=== PATIENT | female | born 1945 | race Caucasian/White ===

== ENCOUNTER 2017-02-17 19:49 | Observation (INO) ==
[2017-02-17 20:40] LABS: Basophils % 0.2 %; Eosinophils # 0.1 K/mcL (0.0-0.6); Eosinophils % 1.5 %; Hematocrit 42.2 % (35.3-44.9); Hemoglobin 14.3 g/dL (11.5-15.4); Immature Granulocytes % 0.4 % (0-4); Lymphocytes # 1.7 K/mcL (0.6-4.6); Lymphocytes % 36.8 %; Mean Corpuscular HGB Conc 33.9 g/dL (31.6-35.5); Mean Corpuscular Hemoglobin 34.4 pg (28.0-33.3); Mean Corpuscular Volume 101.4 fL (83.0-100.0); Mean Platelet Volume 9.6 fL (9.4-12.4); Monocytes # 0.6 K/mcL (0.0-1.3); Monocytes % 12.1 %; Neutrophils # 2.2 K/mcL (1.6-8.9); Platelet Count 223 K/mcL (140-400); Red Blood Count 4.16 M/mcL (3.82-4.97); Red Cell Distribution Width 12.9 % (11.5-14.5)
[2017-02-17 20:56] LABS: Alanine Aminotransferase 32 Units/L (0-55); Albumin 3.9 g/dL (3.5-5.0); Albumin/Globulin Ratio 1.1 (1.1-2.2); Alkaline Phosphatase 50 Units/L (38-126); Aspartate Amino Transferase 62 Units/L (5-34); BUN/Creatinine Ratio 10 (6-26); Bilirubin,Direct 0.2 mg/dL (0.0-0.5); Bilirubin,Indirect 0.3 mg/dL (0.0-1.2); Bilirubin,Total 0.5 mg/dL (0.2-1.2); Blood Urea Nitrogen 7 mg/dL (7-20); Calcium 9.8 mg/dL (8.6-10.8); Carbon Dioxide 25 mEq/L (19-29); Chloride 101 mEq/L (98-109); Globulin 3.4 g/dL (2.4-3.5); Glucose 124 mg/dL (70-99); Osmolality,Calculated 287 (280-300); Potassium 3.9 mEq/L (3.5-4.5); Sodium 139 mEq/L (136-145); Total Protein 7.3 g/dL (6.0-8.3); eGFR For African Americans > 60 (> 60); eGFR For Non-African Americans > 60 (> 60)
[2017-02-17 20:58] LABS: Ethanol < 10 mg/dL (0-10)
--- NOTE | 2017-02-17 21:07 | Emergency Department Note ---
Disposition Clinical Impression: Hallucinations, Adverse reaction to drug in therapeutic use Altered mental status Qualifiers: Altered mental status type: disorientation Qualified Code(s): R41.0 - Disorientation, unspecified Disposition: Admitted As Inpatient Condition: Fair Referrals: Branden Evans DO [Primary Care Provider] - Forms: ED Satisfaction Letter General Adult HPI - General Chief complaint: ED Altered Mental Status Stated complaint: Hallucinations / Poss Stroke Time Seen by Provider: 02/17/17 20:54 Source: other Nursing Notes Reviewed: Yes Vital Signs Reviewed: Yes - History of Present Illness HPI Narrative: Mrs. Sanchez, a 71yo female, presents with her longtime friend who is power of defense attorney bedside. He is very smooth the patient andher baseline to be alert and conversive. He notes a 24-hour history of mumbling speech, visual hallucinations, and difficulty with ambulation. Hallucinations described as seeing a cat which was not there in recalling conversations that day with her mother who is for 10 years. Patient has stumbled but has not fallen. Patient notes difficulty with an pain with urination. Otherwise, no fever or chills. No chest pains palpitations or dyspnea. PMH: Seizure history on Depakote and divalproex. Difficulty sleeping on trazodone and Seroquel. Anxiety and depression on buspirone and venlafaxine. Chronic pain problems on gabapentin and tramadol. Tramadol is a new medication. Nobody is with her to help her control or monitor her medication intake. History TIA. 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 Pain Scale: 0 - Related Data Previous Rx's Medication Instructions Recorded Amoxicillin 875 mg PO BID #14 tablet 05/27/16 Sulfamethoxazole/Trimeth DS 1 each PO BID #14 tablet 05/27/16 [Bactrim DS] Allergies Allergy/AdvReac Type Severity Reaction Status Date / Time codeine Allergy Vomiting Verified 02/17/17 20:01 All systems ED: reviewed and negative except as stated. Past Medical History - Past Medical History Medical history: Reports: CVA, seizures Surgical history: Reports: other (Tonsillectomy) Psychiatric history: Reports: anxiety, bipolar, depression HIGH PRESSURE CLEANER history: Reports: no HIGH PRESSURE CLEANER history - Social History Smoking Status: Former smoker Smokeless Tobacco Status: No Alcohol use: Reports: none Drug use: Reports: none Physical Exam Vital Signs Reviewed General: Patient is alert, oriented, and in no acute distress. HEENT: No facial asymmetry. Head is normocephalic and atraumatic. PERRLA, EOMI. oral mucosa moist. Trachea midline. Cardiovascular: Heart regular rate and rhythm without clicks, rubs, gallops, or murmurs. No JVD. PMI nondisplaced. Bilateral radial posterior tibial pulses 2 /4 equal. Respiratory: Symmetric chest rise with good respiratory effort. Bilateral breath sounds are clear without wheezing, crackles, or rhonchi. Abdomen: Bowel sounds present normoactive x-4 quadrants. Abdomen is soft, nondistended, and nontender. Musculoskeletal: Muscle strength 5/5 and symmetric bilaterally in upper and lower extremities. Neuro: Cranial nerves II through XII without deficit. Sensation light touch intact. No pronator drift. Psych: Patient's affect is appropriate for situation. - General General appearance: alert, in no apparent distress Course Course Narrative: Patient has no focal motor or sensory deficits. She does not slur her speech but rather stutters and speaks incoherently. Differential includes TIA versus UTI versus medication toxicity/side effects; suspect tramadol. Vital Signs Temperature 97.6 F 02/17/17 19:56 Pulse Rate 110 02/17/17 19:56 Respiratory Rate 20 02/17/17 19:56 Blood Pressure 125/86 02/17/17 19:56 O2 Sat by Pulse Oximetry 94 02/17/17 19:56 Temperature 97.6 F 02/17/17 19:56 Pulse Rate 76 02/17/17 23:39 Respiratory Rate 16 02/17/17 23:39 Blood Pressure 104/66 02/17/17 23:39 O2 Sat by Pulse Oximetry 90 02/17/17 23:39 Oxygen Delivery Oxygen Delivery Room Air Medical Decision Making - Lab Data Result diagrams: 02/17/17 20:20 02/17/17 20:20 Lab Results 02/17/17 02/17/17 02/17/17 Range/Units 20:05 20:20 20:20 WBC 4.6 (4.3-11.1) K/mcL RBC 4.16 (3.82-4.97) M/mcL Hgb 14.3 (11.5-15.4) g/dL Hct 42.2 (35.3-44.9) % MCV 101.4 H (83.0-100.0) fL MCH 34.4 H (28.0-33.3) pg MCHC 33.9 (31.6-35.5) g/dL RDW 12.9 (11.5-14.5) % Plt Count 223 (140-400) K/mcL MPV 9.6 (9.4-12.4) fL Immature Gran % 0.4 (0-4) % Seg Neutrophils % 49.0 % Lymphocytes % 36.8 % Monocytes % 12.1 % Eosinophils % 1.5 % Basophils % 0.2 % Neutrophils # 2.2 (1.6-8.9) K/mcL Lymphocytes # 1.7 (0.6-4.6) K/mcL Monocytes # 0.6 (0.0-1.3) K/mcL Eosinophils # 0.1 (0.0-0.6) K/mcL Basophils # 0.0 (0.0-0.2) K/mcL Sodium 139 (136-145) mEq/L Potassium 3.9 (3.5-4.5) mEq/L Chloride 101 (98-109) mEq/L Carbon Dioxide 25 (19-29) mEq/L BUN 7 (7-20) mg/dL Creatinine 0.72 (0.57-1.11) mg/dL Est GFR ( Amer) > 60 (> 60) Est GFR (Non-Af Amer) > 60 (> 60) BUN/Creatinine Ratio 10 (6-26) Glucose 124 H (70-99) mg/dL POC Glucose 115 H (58-89) Calculated Osmolality 287 (280-300) Calcium 9.8 (8.6-10.8) mg/dL Phosphorus 3.0 (2.3-4.7) mg/dL Magnesium 1.7 (1.6-2.6) mg/dL Total Bilirubin 0.5 (0.2-1.2) mg/dL Direct Bilirubin 0.2 (0.0-0.5) mg/dL Indirect Bilirubin 0.3 (0.0-1.2) mg/dL AST 62 H (5-34) Units/L ALT 32 (0-55) Units/L Alkaline Phosphatase 50 (38-126) Units/L Troponin I (0-0.03) ng/mL Serum Total Protein 7.3 (6.0-8.3) g/dL Albumin 3.9 (3.5-5.0) g/dL Globulin 3.4 (2.4-3.5) g/dL Albumin/Globulin Ratio 1.1 (1.1-2.2) Urine Color (Yellow) Urine Clarity (Clear) Urine pH (5.0-8.0) pH Units Ur Specific [place] (1.010-1.025) Urine Protein (Neg-Trace) mg/dL Urine Glucose (UA) (Normal) mg/dL Urine Ketones (Negative) mg/dL Urine Blood (Negative) Urine Nitrite (Negative) Urine Bilirubin (Negative) Urine Urobilinogen (Normal) mg/dL Ur Leukocyte Esterase (Negative) Urine Microscopic RBC (0-3) per hpf Urine Microscopic WBC (0-3) per hpf Ur Squamous Epith Cells (None-Few) per lpf Urine Bacteria (None-Few) per hpf Hyaline Casts (None-Few) per lpf Ur Culture Indicated? (NO) Urine Opiates Screen (Ikjbuj=878) ng/mL Ur Barbiturates Screen (Vcvjrl=366) ng/mL Valproic Acid (50-100) mcg/mL Ur Phencyclidine Scrn (Cutoff=25) ng/mL Ur Amphetamines Screen (Pqxili=0207) ng/mL U Benzodiazepines Scrn (Ghyygx=111) ng/mL Urine Cocaine Screen (Cutoff= 300) ng/mL U Marijuana (THC) Screen (Cutoff = 50) ng/mL Ethyl Alcohol < 10 (0-10) mg/dL 02/17/17 02/17/17 02/17/17 Range/Units 20:20 20:20 21:22 WBC (4.3-11.1) K/mcL RBC (3.82-4.97) M/mcL Hgb (11.5-15.4) g/dL Hct (35.3-44.9) % MCV (83.0-100.0) fL MCH (28.0-33.3) pg MCHC (31.6-35.5) g/dL RDW (11.5-14.5) % Plt Count (140-400) K/mcL MPV (9.4-12.4) fL Immature Gran % (0-4) % Seg Neutrophils % % Lymphocytes % % Monocytes % % Eosinophils % % Basophils % % Neutrophils # (1.6-8.9) K/mcL Lymphocytes # (0.6-4.6) K/mcL Monocytes # (0.0-1.3) K/mcL Eosinophils # (0.0-0.6) K/mcL Basophils # (0.0-0.2) K/mcL Sodium (136-145) mEq/L Potassium (3.5-4.5) mEq/L Chloride (98-109) mEq/L Carbon Dioxide (19-29) mEq/L BUN (7-20) mg/dL Creatinine (0.57-1.11) mg/dL Est GFR ( Amer) (> 60) Est GFR (Non-Af Amer) (> 60) BUN/Creatinine Ratio (6-26) Glucose (70-99) mg/dL POC Glucose (58-89) Calculated Osmolality (280-300) Calcium (8.6-10.8) mg/dL Phosphorus (2.3-4.7) mg/dL Magnesium (1.6-2.6) mg/dL Total Bilirubin (0.2-1.2) mg/dL Direct Bilirubin (0.0-0.5) mg/dL Indirect Bilirubin (0.0-1.2) mg/dL AST (5-34) Units/L ALT (0-55) Units/L Alkaline Phosphatase (38-126) Units/L Troponin I 0.00 (0-0.03) ng/mL Serum Total Protein (6.0-8.3) g/dL Albumin (3.5-5.0) g/dL Globulin (2.4-3.5) g/dL Albumin/Globulin Ratio (1.1-2.2) Urine Color Yellow (Yellow) Urine Clarity Clear (Clear) Urine pH 7.0 (5.0-8.0) pH Units Ur Specific [place] 1.011 (1.010-1.025) Urine Protein Negative (Neg-Trace) mg/dL Urine Glucose (UA) Normal (Normal) mg/dL Urine Ketones Trace H (Negative) mg/dL Urine Blood Small H (Negative) Urine Nitrite Negative (Negative) Urine Bilirubin Negative (Negative) Urine Urobilinogen Normal (Normal) mg/dL Ur Leukocyte Esterase Negative (Negative) Urine Microscopic RBC 0-3 (0-3) per hpf Urine Microscopic WBC 0-3 (0-3) per hpf Ur Squamous Epith Cells Few (None-Few) per lpf Urine Bacteria None Seen (None-Few) per hpf Hyaline Casts None Seen (None-Few) per lpf Ur Culture Indicated? NO (NO) Urine Opiates Screen (Xwfxmv=008) ng/mL Ur Barbiturates Screen (Wrwzgt=023) ng/mL Valproic Acid 59.33 (50-100) mcg/mL Ur Phencyclidine Scrn (Cutoff=25) ng/mL Ur Amphetamines Screen (Afuekr=8448) ng/mL U Benzodiazepines Scrn (Lnukpf=948) ng/mL Urine Cocaine Screen (Cutoff= 300) ng/mL U Marijuana (THC) Screen (Cutoff = 50) ng/mL Ethyl Alcohol (0-10) mg/dL 02/17/17 Range/Units 21:22 WBC (4.3-11.1) K/mcL RBC (3.82-4.97) M/mcL Hgb (11.5-15.4) g/dL Hct (35.3-44.9) % MCV (83.0-100.0) fL MCH (28.0-33.3) pg MCHC (31.6-35.5) g/dL RDW (11.5-14.5) % Plt Count (140-400) K/mcL MPV (9.4-12.4) fL Immature Gran % (0-4) % Seg Neutrophils % % Lymphocytes % % Monocytes % % Eosinophils % % Basophils % % Neutrophils # (1.6-8.9) K/mcL Lymphocytes # (0.6-4.6) K/mcL Monocytes # (0.0-1.3) K/mcL Eosinophils # (0.0-0.6) K/mcL Basophils # (0.0-0.2) K/mcL Sodium (136-145) mEq/L Potassium (3.5-4.5) mEq/L Chloride (98-109) mEq/L Carbon Dioxide (19-29) mEq/L BUN (7-20) mg/dL Creatinine (0.57-1.11) mg/dL Est GFR ( Amer) (> 60) Est GFR (Non-Af Amer) (> 60) BUN/Creatinine Ratio (6-26) Glucose (70-99) mg/dL POC Glucose (58-89) Calculated Osmolality (280-300) Calcium (8.6-10.8) mg/dL Phosphorus (2.3-4.7) mg/dL Magnesium (1.6-2.6) mg/dL Total Bilirubin (0.2-1.2) mg/dL Direct Bilirubin (0.0-0.5) mg/dL Indirect Bilirubin (0.0-1.2) mg/dL AST (5-34) Units/L ALT (0-55) Units/L Alkaline Phosphatase (38-126) Units/L Troponin I (0-0.03) ng/mL Serum Total Protein (6.0-8.3) g/dL Albumin (3.5-5.0) g/dL Globulin (2.4-3.5) g/dL Albumin/Globulin Ratio (1.1-2.2) Urine Color (Yellow) Urine Clarity (Clear) Urine pH (5.0-8.0) pH Units Ur Specific [place] (1.010-1.025) Urine Protein (Neg-Trace) mg/dL Urine Glucose (UA) (Normal) mg/dL Urine Ketones (Negative) mg/dL Urine Blood (Negative) Urine Nitrite (Negative) Urine Bilirubin (Negative) Urine Urobilinogen (Normal) mg/dL Ur Leukocyte Esterase (Negative) Urine Microscopic RBC (0-3) per hpf Urine Microscopic WBC (0-3) per hpf Ur Squamous Epith Cells (None-Few) per lpf Urine Bacteria (None-Few) per hpf Hyaline Casts (None-Few) per lpf Ur Culture Indicated? (NO) Urine Opiates Screen Negative (Snakpr=869) ng/mL Ur Barbiturates Screen Negative (Lunqge=044) ng/mL Valproic Acid (50-100) mcg/mL Ur Phencyclidine Scrn Negative (Cutoff=25) ng/mL Ur Amphetamines Screen Negative (Uhyayb=0926) ng/mL U Benzodiazepines Scrn Negative (Vvglsy=726) ng/mL Urine Cocaine Screen Negative (Cutoff= 300) ng/mL U Marijuana (THC) Screen Negative (Cutoff = 50) ng/mL Ethyl Alcohol (0-10) mg/dL Attestation Statement - Attestation Attestation: IAngel MD, personally evaluated this patient and discussed their management with the resident physician. I reviewed the resident's note and agree with the documented findings, medical decision making, and plan of care. 71-year-old female who presents to the emergency department with a complaint of increased confusion, hallucinations, generalized weakness and ataxia. Patient was just recently started on tramadol and her friend reports that last night after she took the tramadol she had hallucinations in seemed to get worse. She seemed a little better today but then this evening when she took tramadol the symptoms worsened again. He states that she has been mumbling a lot and her speech is more slurred than normal but otherwise no focal deficits. On examination patient is a well-developed well-nourished elderly female in no acute distress. She is alert and oriented to person and place but not time. There is no cyanosis or diaphoresis. Chest is nontender to palpation. Breath sounds are decreased but equal bilaterally. Heart regular rate and rhythm. Abdomen soft and nontender with normal bowel sounds. No gross focal neurological deficits. Labs reviewed and unremarkable. Chest x-ray negative. Head CT shows some chronic changes but nothing acute. The hospitalist, Dr. Sanford, was consulted and accepted admission of the patient.
[2017-02-17 21:27] LABS: Magnesium 1.7 mg/dL (1.6-2.6)
[2017-02-17 21:42] LABS: Bilirubin,Urine Negative (Negative); Blood,Urine Small (Negative); Clarity,Urine Clear (Clear); Color,Urine Yellow (Yellow); Glucose,Urine (UA) Normal (Normal); Ketones,Urine Trace mg/dL (Negative); Leukocyte Esterase,Urine Negative (Negative); Nitrite,Urine Negative (Negative); Protein,Urine Negative (Neg-Trace); Specific Gravity,Urine 1.011 (1.010-1.025); Urobilinogen,Urine Normal (Normal)
[2017-02-17 21:46] LABS: Bacteria,Urine None Seen per hpf (None-Few); Hyaline Casts,Urine None Seen per lpf (None-Few); RBC,Urine 0-3 per hpf (0-3); Squamous Epithelial Cell,Urine Few per lpf (None-Few); WBC,Urine 0-3 per hpf (0-3)
[2017-02-17 21:50] LABS: Amphetamine Screen,Urine Negative ng/mL (Cutoff=1000); Barbiturate Screen,Urine Negative ng/mL (Cutoff=200); Benzodiazepines Screen,Urine Negative ng/mL (Cutoff=200); Cannabinoid Screen,Urine Negative ng/mL (Cutoff = 50); Cocaine Screen,Urine Negative ng/mL (Cutoff= 300); Opiate Screen,Urine Negative ng/mL (Cutoff=300); Phencyclidine Screen,Urine Negative ng/mL (Cutoff=25)
[2017-02-18] MEDS ORDERED: traZODone 50 MG TABLET PO PRN (04:47)
[2017-02-18] MEDS ORDERED: Sennosides/Docusate Sodium TABLET PO PRN (04:47)
[2017-02-18] MEDS ORDERED: Naloxone 0.4 MG/ML INJ IVP PRN (04:48)
--- NOTE | 2017-02-18 04:51 | Internal Med History&Physical ---
Date of Encounter: 02/18/17 Time of Encounter: 04:50 Assessment and Plan (1) Hallucinations Current visit: Yes Status: Acute recently started on tramadol in addition to the possibility of she taking more of her existing medications than usual, she is home alone and may be accidentally overdosing on her medications, etiology is accidental drug overdose in addition to tramadol which may have worsened her baseline mentation , we will monitor her neuro status Q shift, will get social work involved for [facility] placement consideration since she is not safe living by herself (2) Seizure disorder Current visit: Yes Status: Chronic Patient has seizure disorder on medications, CT head reported an area of encephalomalacia most likely the focus, unfortunately someone prescribed this lady tramadol which has the potential of lowering her seizure threshold, this medication will be discontinued, (3) Mood disorder Current visit: Yes Status: Chronic Continue home medications (4) GERD (gastroesophageal reflux disease) Current visit: Yes Status: Chronic continue pepcid Qualifiers: Esophagitis presence: without esophagitis Qualified Code(s): K21.9 - Gastro -esophageal reflux disease without esophagitis Internal Medicine - H&P: HPI Chief complaint: seeing things Admitted From: Emergency Dept Plans for Post Hospital Care: Home History of present illness: Ms. Sanchez is a 71 year old female with mood disorder/seizure disorder who was brought in by a friend for hallucinations. It is reported that she seemed to be in her usual state of health until the past 24 hours when she started seeing things that others could not see. She was reported as seeing cats among other things. History is limited due to patient's confusion, unfortunately friend is not at bedside to help with the history taking process. Most of the history was extracted from chart review and from medical staff. Apparently she was recently started on tramadol and also her bottle of trazodone which was recently refilled was almost empty and patient is reported as saying that she is unable to sleep on her current regimen. Past Med Surg Social Fam HX - Past Medical History Medical history: CVA, seizures Psychiatric history: anxiety, bipolar, depression - Past Surgical History Surgical History: other (Tonsillectomy) - Social History Smoking Status: Former smoker Smokeless Tobacco Status: No Alcohol use: none Drug use: none Internal Medicine - H&P: Meds Aspirin Enteric Coated [Aspirin EC] 81 mg PO DAILY 02/18/17 [History] Cholecalciferol (Vitamin D3) [Vitamin D] 1,000 unit PO DAILY 02/18/17 [History] Divalproex (24 HR) [Depakote ER (24 HR)] 1,000 mg PO HS 02/18/17 [History] Divalproex (24 HR) [Depakote ER (24 HR)] 1,000 mg PO QAM 02/18/17 [History] Gabapentin [Neurontin] 200 mg PO TID 02/18/17 [History] Multivit-Min/FA/Lycopen/Lutein [Adults 50+ Multivitamin Tablet] 1 each PO DAILY 02/18/17 [History] Quetiapine Fumarate [Seroquel] 200 mg PO HS 02/18/17 [History] Ranitidine HCl [Heartburn Relief] 150 mg PO HS 02/18/17 [History] Sennosides/Docusate Sodium [Senna Plus] 2 each PO HS PRN 02/18/17 [History] Tramadol HCl [Ultram] 50 mg PO Q12H PRN 02/18/17 [History] Venlafaxine HCl [Venlafaxine HCl ER] 150 mg PO DAILY 02/18/17 [History] traZODone [TraZODone] 50 mg PO HS PRN 02/18/17 [History] 3 Allergy/AdvReac Type Severity Reaction Status Date / Time codeine Allergy Vomiting Verified 02/17/17 20:01 ROS unobtainable: due to mental status All Systems PM: Unable to obtain due to patients mental status changes - Constitutional Vitals: Temp Pulse Resp BP Pulse Ox 98.1 F 75 18 101/75 97 02/18/17 01:30 02/18/17 01:30 02/18/17 01:30 02/18/17 01:30 02/18/17 01:30 GENERAL: Adult female, lying in bed, drowsy, not in obvious pain or distress HEENT: NC/AT, EOMI, PERRLA, anicteric sclera, normal conjunctiva, supple, clear nares, moist mucous membranes, RESP: Lungs are clear to auscultation bilaterally, with good AE, no crackles or wheeze CARDIO: Normal heart sounds with RRR, no murmurs, no JVD, no ankle edema GI: Soft, full, no tenderness, no organomegaly felt, normal bowel sounds heard MUSCULOSKELETAL: Grossly normal movements bilaterally, no deformities noted, NEUROLOGIC: CN 2-12 intact grossly. No gross motor/sensory deficit appreciated, PSYCHIATRY: AAO x 1. appears confused SKIN: no skin rash or ulcers noted Internal Med - H&P Results - Labs CBC & Chem 7: 02/17/17 20:20 02/17/17 20:20 - Diagnostic Studies Chest x-ray Status: image reviewed by me CT scan - head Status: image reviewed by me
[2017-02-18] MEDS ORDERED: Divalproex (24 HR) 500 MG TABLET PO SCH ×2 (09:00→21:00)
[2017-02-18] MEDS: *HR* Heparin 5,000 UNIT/ML VIAL SQ SCH ×4 (10:16→21:30)
[2017-02-18] MEDS: Gabapentin 100 MG CAPSULE PO SCH ×3 (10:25→21:24)
[2017-02-18] MEDS: Venlafaxine XR (24 HR) 150 MG CAP.ER.24H PO SCH (10:25)
[2017-02-18] MEDS: Multivit/Ca/Min/Fe/FA 1 TAB TABLET PO SCH (10:25)
[2017-02-18] MEDS: Cholecalciferol (D-3) 1,000 UNIT TABLET PO SCH (10:25)
[2017-02-18] MEDS: Aspirin Enteric Coated 81 MG Tablet PO SCH (10:25)
[2017-02-18] MEDS ORDERED: Preparation H Ointment 30 GM TUBE RC PRN (11:51)
[2017-02-18] MEDS: Ondansetron ODT 4 MG TAB.RAPDIS SL PRN (13:44)
--- NOTE | 2017-02-18 18:36 | Event Note ---
Date of Encounter: 02/18/17 Time of Encounter: 18:34 71/female History of a seizure disorder/mood disorder/GERD. Admitted with worsening hallucinations. After detailed evaluation of the home medication it was noted that patient was taking extra dose of Depakote than what was prescribed. NEIDA Hernandez confirmed this with the [facility]. Patient was placed on the original dose of Depakote We will get Depakote levels. Possible psych evaluation tomorrow/Monday
[2017-02-18] MEDS: Famotidine 20 MG TABLET PO SCH (21:25)
[2017-02-18] MEDS: Divalproex (24 HR) 500 MG TABLET PO SCH (21:25)
[2017-02-19 03:36] LABS: Basophils % 0.5 %; Eosinophils # 0.2 K/mcL (0.0-0.6); Eosinophils % 2.9 %; Hematocrit 41.2 % (35.3-44.9); Hemoglobin 13.8 g/dL (11.5-15.4); Immature Granulocytes % 0.3 % (0-4); Lymphocytes # 2.8 K/mcL (0.6-4.6); Lymphocytes % 46.1 %; Mean Corpuscular HGB Conc 33.5 g/dL (31.6-35.5); Mean Corpuscular Hemoglobin 33.6 pg (28.0-33.3); Mean Corpuscular Volume 100.2 fL (83.0-100.0); Mean Platelet Volume 9.5 fL (9.4-12.4); Monocytes # 0.7 K/mcL (0.0-1.3); Monocytes % 11.9 %; Neutrophils # 2.3 K/mcL (1.6-8.9); Platelet Count 223 K/mcL (140-400); Red Blood Count 4.11 M/mcL (3.82-4.97); Segmented Neutrophils % 38.3 %
[2017-02-19 03:48] LABS: Alanine Aminotransferase 28 Units/L (0-55); Albumin 3.4 g/dL (3.5-5.0); Albumin/Globulin Ratio 1.1 (1.1-2.2); Alkaline Phosphatase 45 Units/L (38-126); Aspartate Amino Transferase 48 Units/L (5-34); BUN/Creatinine Ratio 10 (6-26); BUN/Creatinine Ratio 9 (6-26); Bilirubin,Total 0.7 mg/dL (0.2-1.2); Blood Urea Nitrogen 6 mg/dL (7-20); Calcium 8.9 mg/dL (8.6-10.8); Carbon Dioxide 26 mEq/L (19-29); Chloride 103 mEq/L (98-109); Glucose 95 mg/dL (70-99); Magnesium 1.7 mg/dL (1.6-2.6); Osmolality,Calculated 281 (280-300); Phosphorous 3.8 mg/dL (2.3-4.7); Potassium 3.5 mEq/L (3.5-4.5); Potassium 3.6 mEq/L (3.5-4.5); Sodium 137 mEq/L (136-145); Total Protein 6.4 g/dL (6.0-8.3); eGFR For African Americans > 60 (> 60); eGFR For Non-African Americans > 60 (> 60)
[2017-02-19] MEDS: *HR* Heparin 5,000 UNIT/ML VIAL SQ SCH ×4 (05:27→21:23)
[2017-02-19] MEDS: Divalproex (24 HR) 500 MG TABLET PO SCH ×2 (09:31→21:20)
[2017-02-19] MEDS: Cholecalciferol (D-3) 1,000 UNIT TABLET PO SCH (09:31)
[2017-02-19] MEDS: Multivit/Ca/Min/Fe/FA 1 TAB TABLET PO SCH (09:31)
[2017-02-19] MEDS: Aspirin Enteric Coated 81 MG Tablet PO SCH (09:31)
[2017-02-19] MEDS: Venlafaxine XR (24 HR) 150 MG CAP.ER.24H PO SCH (09:31)
[2017-02-19] MEDS: Gabapentin 100 MG CAPSULE PO SCH ×3 (09:31→21:19)
[2017-02-19] MEDS: Ondansetron ODT 4 MG TAB.RAPDIS SL PRN (15:09)
--- NOTE | 2017-02-19 17:52 | Internal Med Progress Note ---
Date of Encounter: 02/19/17 Time of Encounter: 17:50 - Assessment and plan (1) Hallucinations Current Visit: Yes Status: Acute Assessment and plan: Patient was admitted with hallucinations. It was noted that her seizure medication dosage was given to her not as per prescription. Please see the detailed note from NEIDA Hernandez Plan: We will get psychiatry for medication management tomorrow. (2) Seizure disorder Current Visit: Yes Status: Chronic Assessment and plan: No new seizures noted. will continue same medications for now. (3) Mood disorder Current Visit: Yes Status: Chronic Assessment and plan: She has an appointment with the psychiatric tomorrow. We will get our psychiatry to evaluate her and then maybe our psychiatric and talked to her psychiatry for further medication rearrangement. - Subjective Interval history: Patient seen and examined. Chart reviewed. Patient is comfortably lying in bed. Patient claims that she feels much better today. Next line patient does not have any hallucinations. - Constitutional Vitals: Temp Pulse Resp BP Pulse Ox 97.9 F 90 17 142/89 96 02/19/17 16:00 02/19/17 16:00 02/19/17 16:00 02/19/17 16:00 02/19/17 16:00 - Head Head exam: Present: atraumatic, normocephalic - Eye Eye exam: Present: PERRL, conjuntiva pink, sclera anicteric Pupils: Present: PERRL - Neck Neck exam general surgery: Present: supple, trachea midline. Absent: lymphadenopathy - Respiratory Respiratory exam: Present: CTAB. Absent: accessory muscle use, rales, rhonchi, wheezes - Cardiovascular Cardiovascular exam: Present: RRR, +S1, +S2. Absent: diastolic murmur, gallop, rubs, systolic murmur - GI/Abdominal GI/Abdominal exam: Present: normal bowel sounds, soft, no peritoneal signs. Absent: distended, tenderness - Extremities Exam Extremities exam: Present: warm, radial pulses palpable and symmetrical. Absent : calf tenderness, cyanotic, pedal edema - Neurological Exam Neurological exam: Present: CN II-XII intact, oriented X3, no focal deficits. Absent: pronater drift, facial droop, speech deficit - Skin Skin exam: Present: dry, intact Internal Medicine: Result - Labs CBC & Chem 7: 02/19/17 03:16 02/19/17 03:16 Labs: Short CBC 02/19/17 Range/Units 03:16 WBC 6.0 (4.3-11.1) K/mcL Hgb 13.8 (11.5-15.4) g/dL Hct 41.2 (35.3-44.9) % Plt Count 223 (140-400) K/mcL Neutrophils # 2.3 (1.6-8.9) K/mcL BMP 02/19/17 02/19/17 03:16 03:16 Sodium 137 137 Potassium 3.5 3.6 Chloride 103 103 Carbon Dioxide 26 26 BUN 6 L 6 L Creatinine 0.64 0.63 Glucose 95 95 Calcium 8.9 9.0 Liver Function 02/19/17 Range/Units 03:16 Total Bilirubin 0.7 (0.2-1.2) mg/dL AST 48 H (5-34) Units/L ALT 28 (0-55) Units/L Alkaline Phosphatase 45 (38-126) Units/L Albumin 3.4 L (3.5-5.0) g/dL Consult Discharge Plan - Plan Referrals: Branden Evans DO [Primary Care Provider] -
[2017-02-19] MEDS: Famotidine 20 MG TABLET PO SCH (21:20)
[2017-02-20 04:16] LABS: Basophils % 0.7 %; Eosinophils # 0.2 K/mcL (0.0-0.6); Eosinophils % 3.6 %; Hematocrit 41.7 % (35.3-44.9); Hemoglobin 13.9 g/dL (11.5-15.4); Immature Granulocytes % 0.3 % (0-4); Lymphocytes # 3.3 K/mcL (0.6-4.6); Lymphocytes % 53.3 %; Mean Corpuscular HGB Conc 33.3 g/dL (31.6-35.5); Mean Corpuscular Hemoglobin 33.5 pg (28.0-33.3); Mean Corpuscular Volume 100.5 fL (83.0-100.0); Mean Platelet Volume 9.5 fL (9.4-12.4); Monocytes # 0.7 K/mcL (0.0-1.3); Monocytes % 11.1 %; Neutrophils # 1.9 K/mcL (1.6-8.9); Platelet Count 231 K/mcL (140-400); Red Blood Count 4.15 M/mcL (3.82-4.97)
[2017-02-20 04:34] LABS: Alanine Aminotransferase 27 Units/L (0-55); Albumin 3.3 g/dL (3.5-5.0); Albumin/Globulin Ratio 1.1 (1.1-2.2); Alkaline Phosphatase 43 Units/L (38-126); Aspartate Amino Transferase 43 Units/L (5-34); BUN/Creatinine Ratio 12 (6-26); Bilirubin,Total 0.6 mg/dL (0.2-1.2); Blood Urea Nitrogen 9 mg/dL (7-20); Calcium 9.1 mg/dL (8.6-10.8); Carbon Dioxide 26 mEq/L (19-29); Chloride 103 mEq/L (98-109); Glucose 90 mg/dL (70-99); Osmolality,Calculated 288 (280-300); Potassium 3.8 mEq/L (3.5-4.5); Sodium 140 mEq/L (136-145); Total Protein 6.3 g/dL (6.0-8.3); eGFR For African Americans > 60 (> 60); eGFR For Non-African Americans > 60 (> 60)
[2017-02-20] MEDS: *HR* Heparin 5,000 UNIT/ML VIAL SQ SCH ×3 (05:44→19:52)
--- NOTE | 2017-02-20 07:12 | Internal Med Progress Note ---
<Marky Alcantar - Last Filed: 02/20/17 11:09> Date of Encounter: 02/20/17 Time of Encounter: 07:12 - Assessment and plan (1) Hallucinations Current Visit: Yes Status: Acute Assessment and plan: Patient was admitted with hallucinations. It was noted that her seizure medication dosage was given to her not as per prescription. POA verified that he spoke with the PCP when the side effects occurred and the pt was only to take 500mg BID. POA believes that the home health aides are taking her medications. See detailed Brittany CARRASQUILLO note from 02/18/17 Plan: Psychiatry consulted for medication management Socail services consulted D/c once cleared by psych (2) Seizure disorder Current Visit: Yes Status: Chronic Assessment and plan: No new seizures noted. Will continue same medications for now. (3) Mood disorder Current Visit: Yes Status: Chronic Assessment and plan: She has an appointment with outpatient psychiatry 02/20/17 Psychiatry consulted to evaluate her and then maybe our psychiatric and talked to her psychiatrist for further medication rearrangement. (4) DVT prophylaxis Current Visit: Yes Status: Acute Assessment and plan: Heparin subQ TID - Subjective Interval history: Patient seen and examined. Chart reviewed. Patient is comfortably lying in bed. Patient claims that she feels much better today. Next line patient does not have any hallucinations. 02/20/17 Patient seen and examined. Chart reviewed. Patient is resting comfortably sitting up in bed. Patient denies difficulty sleeping last night and is unable to recall getting her blood draw this morning. Currently awaiting Psych consult for medication recommendations. at bedside. - Constitutional Vitals: Temp Pulse Resp BP Pulse Ox 98.2 F 70 16 114/56 98 02/20/17 07:05 02/20/17 07:05 02/20/17 07:05 02/20/17 07:05 02/20/17 07:05 General appearance: Present: cooperative, A&O X 3, pleasant, no acute distress, answers questions appropriately - Head Head exam: Present: atraumatic, normal inspection, normocephalic - Eye Eye exam: Present: EOMI, PERRL - ENT ENT exam: Present: mucous membranes moist, normal oropharynx - Expanded ENT Exam Teeth exam: Present: edentulous - Neck Neck exam general surgery: Present: normal inspection, supple. Absent: tenderness - Respiratory Respiratory exam: Present: CTAB. Absent: wheezes - Cardiovascular Cardiovascular exam: Present: RRR, +S1, +S2 - GI/Abdominal GI/Abdominal exam: Present: normal bowel sounds, soft. Absent: distended, guarding, tenderness - Back Exam Back exam: Present: normal inspection. Absent: paraspinal tenderness, tenderness - Neurological Exam Neurological exam: Present: alert, oriented X3, no focal deficits, strengths equal and symetr throughout. Absent: motor sensory deficit, facial droop, speech deficit - Psychiatric Psychiatric exam: Present: flat affect, normal mood - Skin Skin exam: Present: dry, intact, normal color, warm Internal Medicine: Result - Labs CBC & Chem 7: 02/20/17 03:34 02/20/17 03:34 Labs: Short CBC 02/20/17 Range/Units 03:34 WBC 6.1 (4.3-11.1) K/mcL Hgb 13.9 (11.5-15.4) g/dL Hct 41.7 (35.3-44.9) % Plt Count 231 (140-400) K/mcL Neutrophils # 1.9 (1.6-8.9) K/mcL BMP 02/20/17 03:34 Sodium 140 Potassium 3.8 Chloride 103 Carbon Dioxide 26 BUN 9 Creatinine 0.74 Glucose 90 Calcium 9.1 Liver Function 02/20/17 Range/Units 03:34 Total Bilirubin 0.6 (0.2-1.2) mg/dL AST 43 H (5-34) Units/L ALT 27 (0-55) Units/L Alkaline Phosphatase 43 (38-126) Units/L Albumin 3.3 L (3.5-5.0) g/dL Consult Discharge Plan - Plan Referrals: Branden Evans DO [Primary Care Provider] - <Cornel Amaro - Last Filed: 02/20/17 17:52> Date of Encounter: 02/20/17 - Assessment and plan (1) Hallucinations Current Visit: Yes Status: Acute (2) Seizure disorder Current Visit: Yes Status: Chronic (3) Mood disorder Current Visit: Yes Status: Chronic - Constitutional Vitals: Temp Pulse Resp BP Pulse Ox 98.4 F 86 20 103/78 98 02/20/17 15:15 02/20/17 15:15 02/20/17 15:15 02/20/17 15:15 02/20/17 15:15 Internal Medicine: Result - Labs CBC & Chem 7: 02/20/17 03:34 02/20/17 03:34 Labs: Short CBC 02/20/17 Range/Units 03:34 WBC 6.1 (4.3-11.1) K/mcL Hgb 13.9 (11.5-15.4) g/dL Hct 41.7 (35.3-44.9) % Plt Count 231 (140-400) K/mcL Neutrophils # 1.9 (1.6-8.9) K/mcL BMP 02/20/17 03:34 Sodium 140 Potassium 3.8 Chloride 103 Carbon Dioxide 26 BUN 9 Creatinine 0.74 Glucose 90 Calcium 9.1 Liver Function 02/20/17 Range/Units 03:34 Total Bilirubin 0.6 (0.2-1.2) mg/dL AST 43 H (5-34) Units/L ALT 27 (0-55) Units/L Alkaline Phosphatase 43 (38-126) Units/L Albumin 3.3 L (3.5-5.0) g/dL - Attending Attestation I examined this patient and my medical decision-making was reviewed with the Resident Physician. I agree with the documented findings, disposition and treatment plan as described except to the extent set forth below. 71F - Mood disorder & seizure disorder with hallucinations, seeing cats. On Depakote, Seroquel, & Effexor. Psychiatry consulted for medication reassessment Psychiatric recommended neurology evaluation and outpatient psychiatric follow- up. Patient needs neurology consult.
[2017-02-20] MEDS: Venlafaxine XR (24 HR) 150 MG CAP.ER.24H PO SCH (09:22)
[2017-02-20] MEDS: Divalproex (24 HR) 500 MG TABLET PO SCH ×2 (09:22→19:51)
[2017-02-20] MEDS: Aspirin Enteric Coated 81 MG Tablet PO SCH (09:22)
[2017-02-20] MEDS: Multivit/Ca/Min/Fe/FA 1 TAB TABLET PO SCH (09:22)
[2017-02-20] MEDS: Cholecalciferol (D-3) 1,000 UNIT TABLET PO SCH (09:22)
[2017-02-20] MEDS: Gabapentin 100 MG CAPSULE PO SCH ×3 (09:22→19:51)
[2017-02-20] MEDS: Ondansetron ODT 4 MG TAB.RAPDIS SL PRN ×2 (12:37→19:51)
--- NOTE | 2017-02-20 16:24 | Consult Note ---
Date of Encounter: 02/20/17 Time of Encounter: 15:45 Assessment & Recommendation (1) Altered mental status Current visit: Yes Status: Acute Assessment & Recommendation: Patient is in state of delirium, would be resulting from reaction to medication , postictal confusion. I recommend neurology consultation follow-up to evaluate patient medication and decided if seizure control is adequate and rule out any neurological events like CVA. Follow-up was psychiatry is recommended as an outpatient. Thank you for consultation Qualifiers: Altered mental status type: delirium Qualified Code(s): R41.0 - Disorientation, unspecified History of Present Illness Patient: new to practice Requesting Physician: Cornel Amaro MD Reason for consult: Hallucination, medication management History of present illness: Ms. Sanchez is a 71 year old female admitted to the hospital for evaluation of altered mental status. Patient was reported to be having visual hallucinations and inappropriate speech. She has a history of seizures and on Depakote, Depakote level was therapeutic. Patient also is having psychiatric treatment at a facility called [facility] and she is on medication. Her POA for health reported that she was given tramadol and he was initially reacted with that medication and the medication was stopped. Also she has a history of overreacting to Chantix and having seizures. At this time patient is alert and awake and not showing any bizarre behavior or hallucinations. CC: Cornel Amaro MD Past Med Surg Social Fam HX - Past Medical History Medical history: CVA, seizures - Past Surgical History Surgical History: cholecystectomy, other - Social History Smoking Status: Former smoker Smokeless Tobacco Status: No Alcohol use: none Drug use: none - Family History Mother Living Status: Age at : 86 Hx Family Neurologic Disorders: Yes (Stroke) Father Living Status: Cause of : 70s Hx Family Psychosocial Disorders: Yes (Alocholism) Medications & Allergies Aspirin Enteric Coated [Aspirin EC] 81 mg PO DAILY 02/18/17 [History] Buspirone HCl [Buspar] 30 mg PO BID 02/18/17 [History] Cholecalciferol (Vitamin D3) [Vitamin D] 1,000 unit PO DAILY 02/18/17 [History] Divalproex (24 HR) [Depakote ER (24 HR)] 500 mg PO BID 02/18/17 [History] Gabapentin [Neurontin] 200 mg PO TID 02/18/17 [History] Multivit-Min/FA/Lycopen/Lutein [Adults 50+ Multivitamin Tablet] 1 tab PO DAILY 02/18/17 [History] Omeprazole [PriLOSEC] 40 mg PO DAILY 02/18/17 [History] Quetiapine Fumarate [Seroquel] 200 mg PO HS 02/18/17 [History] Ranitidine HCl [Heartburn Relief] 150 mg PO HS 02/18/17 [History] Sennosides/Docusate Sodium [Senna Plus] 2 tab PO HS PRN 02/18/17 [History] Simvastatin [Zocor] 40 mg PO HS 02/18/17 [History] Tramadol HCl [Ultram] 50 mg PO Q12H PRN 02/18/17 [History] Venlafaxine HCl [Venlafaxine HCl ER] 150 mg PO DAILY 02/18/17 [History] traZODone [TraZODone] 50 mg PO HS PRN 02/18/17 [History] 3 Allergy/AdvReac Type Severity Reaction Status Date / Time codeine Allergy Vomiting Verified 02/17/17 20:01 Mental Status Exam Additional observations: Elderly white female sitting in a chair she is alert awake but confused unable to recognize her medication diapers names, POA in the room and assisting with history. Results - Vital Signs Vital signs: Temp Pulse Resp BP Pulse Ox 98.4 F 86 20 103/78 98 02/20/17 15:15 02/20/17 15:15 02/20/17 15:15 02/20/17 15:15 02/20/17 15:15 - Labs Labs: Laboratory Last Values WBC 6.1 K/mcL (4.3-11.1) 02/20/17 03:34 RBC 4.15 M/mcL (3.82-4.97) 02/20/17 03:34 Hgb 13.9 g/dL (11.5-15.4) 02/20/17 03:34 Hct 41.7 % (35.3-44.9) 02/20/17 03:34 MCV 100.5 fL (83.0-100.0) H 02/20/17 03:34 MCH 33.5 pg (28.0-33.3) H 02/20/17 03:34 MCHC 33.3 g/dL (31.6-35.5) 02/20/17 03:34 RDW 13.0 % (11.5-14.5) 02/20/17 03:34 Plt Count 231 K/mcL (140-400) 02/20/17 03:34 MPV 9.5 fL (9.4-12.4) 02/20/17 03:34 Immature Gran % 0.3 % (0-4) 02/20/17 03:34 Seg Neutrophils % 31.0 % 02/20/17 03:34 Lymphocytes % 53.3 % 02/20/17 03:34 Monocytes % 11.1 % 02/20/17 03:34 Eosinophils % 3.6 % 02/20/17 03:34 Basophils % 0.7 % 02/20/17 03:34 Neutrophils # 1.9 K/mcL (1.6-8.9) 02/20/17 03:34 Lymphocytes # 3.3 K/mcL (0.6-4.6) 02/20/17 03:34 Monocytes # 0.7 K/mcL (0.0-1.3) 02/20/17 03:34 Eosinophils # 0.2 K/mcL (0.0-0.6) 02/20/17 03:34 Basophils # 0.0 K/mcL (0.0-0.2) 02/20/17 03:34 Sodium 140 mEq/L (136-145) 02/20/17 03:34 Potassium 3.8 mEq/L (3.5-4.5) 02/20/17 03:34 Chloride 103 mEq/L (98-109) 02/20/17 03:34 Carbon Dioxide 26 mEq/L (19-29) 02/20/17 03:34 BUN 9 mg/dL (7-20) 02/20/17 03:34 Creatinine 0.74 mg/dL (0.57-1.11) 02/20/17 03:34 Est GFR ( Amer) > 60 (> 60) 02/20/17 03:34 Est GFR (Non-Af Amer) > 60 (> 60) 02/20/17 03:34 BUN/Creatinine Ratio 12 (6-26) 02/20/17 03:34 Glucose 90 mg/dL (70-99) 02/20/17 03:34 POC Glucose 115 (58-89) H 02/17/17 20:05 Calculated Osmolality 288 (280-300) 02/20/17 03:34 Calcium 9.1 mg/dL (8.6-10.8) 02/20/17 03:34 Phosphorus 3.8 mg/dL (2.3-4.7) 02/19/17 03:16 Magnesium 1.7 mg/dL (1.6-2.6) 02/19/17 03:16 Total Bilirubin 0.6 mg/dL (0.2-1.2) 02/20/17 03:34 Direct Bilirubin 0.2 mg/dL (0.0-0.5) 02/17/17 20:20 Indirect Bilirubin 0.3 mg/dL (0.0-1.2) 02/17/17 20:20 AST 43 Units/L (5-34) H 02/20/17 03:34 ALT 27 Units/L (0-55) 02/20/17 03:34 Alkaline Phosphatase 43 Units/L (38-126) 02/20/17 03:34 Troponin I 0.00 ng/mL (0-0.03) 02/17/17 20:20 Serum Total Protein 6.3 g/dL (6.0-8.3) 02/20/17 03:34 Albumin 3.3 g/dL (3.5-5.0) L 02/20/17 03:34 Globulin 3.0 g/dL (2.4-3.5) 02/20/17 03:34 Albumin/Globulin Ratio 1.1 (1.1-2.2) 02/20/17 03:34 Urine Color Yellow (Yellow) 02/17/17 21:22 Urine Clarity Clear (Clear) 02/17/17 21:22 Urine pH 7.0 pH Units (5.0-8.0) 02/17/17 21:22 Ur Specific [place] 1.011 (1.010-1.025) 02/17/17 21:22 Urine Protein Negative mg/dL (Neg-Trace) 02/17/17 21:22 Urine Glucose (UA) Normal mg/dL (Normal) 02/17/17 21:22 Urine Ketones Trace mg/dL (Negative) H 02/17/17 21:22 Urine Blood Small (Negative) H 02/17/17 21:22 Urine Nitrite Negative (Negative) 02/17/17 21:22 Urine Bilirubin Negative (Negative) 02/17/17 21:22 Urine Urobilinogen Normal mg/dL (Normal) 02/17/17 21:22 Ur Leukocyte Esterase Negative (Negative) 02/17/17 21:22 Urine Microscopic RBC 0-3 per hpf (0-3) 02/17/17 21:22 Urine Microscopic WBC 0-3 per hpf (0-3) 02/17/17 21:22 Ur Squamous Epith Cells Few per lpf (None-Few) 02/17/17 21:22 Urine Bacteria None Seen per hpf (None-Few) 02/17/17 21:22 Hyaline Casts None Seen per lpf (None-Few) 02/17/17 21:22 Ur Culture Indicated? NO (NO) 02/17/17 21:22 Urine Opiates Screen Negative ng/mL (Xlfgij=800) 02/17/17 21:22 Ur Barbiturates Screen Negative ng/mL (Ftakbu=571) 02/17/17 21:22 Valproic Acid 59.33 mcg/mL (50-100) 02/17/17 20:20 Ur Phencyclidine Scrn Negative ng/mL (Cutoff=25) 02/17/17 21:22 Ur Amphetamines Screen Negative ng/mL (Adzres=3863) 02/17/17 21:22 U Benzodiazepines Scrn Negative ng/mL (Ugodwv=127) 02/17/17 21:22 Urine Cocaine Screen Negative ng/mL (Cutoff= 300) 02/17/17 21:22 U Marijuana (THC) Screen Negative ng/mL (Cutoff = 50) 02/17/17 21:22 Ethyl Alcohol < 10 mg/dL (0-10) 02/17/17 20:20 Consult Discharge Plan - Plan Referrals: Branden Evans DO [Primary Care Provider] -
[2017-02-20] MEDS: Famotidine 20 MG TABLET PO SCH (19:51)
[2017-02-21] MEDS: *HR* Heparin 5,000 UNIT/ML VIAL SQ SCH ×4 (05:35→21:56)
[2017-02-21] MEDS: Multivit/Ca/Min/Fe/FA 1 TAB TABLET PO SCH (09:33)
[2017-02-21] MEDS: Divalproex (24 HR) 500 MG TABLET PO SCH ×2 (09:34→21:56)
[2017-02-21] MEDS: Cholecalciferol (D-3) 1,000 UNIT TABLET PO SCH (09:34)
[2017-02-21] MEDS: Gabapentin 100 MG CAPSULE PO SCH ×3 (09:34→21:55)
[2017-02-21] MEDS: Venlafaxine XR (24 HR) 150 MG CAP.ER.24H PO SCH (09:34)
[2017-02-21] MEDS: Aspirin Enteric Coated 81 MG Tablet PO SCH (09:34)
--- NOTE | 2017-02-21 14:02 | Internal Med Progress Note ---
Date of Encounter: 02/21/17 Time of Encounter: 12:45 - Assessment and plan (1) Hallucinations Status: Acute Assessment and plan: Patient admitted with confusion and visual hallucinations. No evidence of infection. Found to be duplicating her dose of Depakote, which is supposed to be 500 mg twice daily. Depakote level noted to be within normal limits. Patient was recently started on tramadol for chronic back pain control, which has been held since admission as it could lower her seizure threshold. Psychiatric evaluation noted, recommended to follow up as an outpatient with her psychiatrist. Hallucinations have currently improved. Patient's power of estimation manager has multiple complaints on various providers who have prescribed various medications to the patient. Insisted on going over her medications with her primary psychiatrist- at [facility]; I have tried calling him and left my name and number but have not received any call back so far. Will continue to follow. (2) Seizure disorder Status: Chronic Assessment and plan: No episodes of seizures since admission. Continue Depakote. Seizure precautions. Outpatient neurology follow-up. (3) Mood disorder Status: Chronic Assessment and plan: We will continue home medications for anxiety and depression. Patient noted to have mild mood swings occasionally. (4) GERD (gastroesophageal reflux disease) Status: Chronic Assessment and plan: Continue PPI. Qualifiers: Esophagitis presence: esophagitis presence not specified Qualified Code(s) : K21.9 - Gastro-esophageal reflux disease without esophagitis - Subjective Interval history: Feels well; tolerates oral diet; no visual or auditory hallucinations; reports occasional tearfulness and anxiety; - Constitutional Vitals: Temp Pulse Resp BP Pulse Ox 98.3 F 74 15 106/67 93 02/21/17 06:55 02/21/17 06:55 02/21/17 06:55 02/21/17 06:55 02/21/17 06:55 General appearance: Present: cooperative, A&O X 3, answers questions appropriately - Respiratory Respiratory exam: Present: CTAB. Absent: accessory muscle use, rales, rhonchi, wheezes - Cardiovascular Cardiovascular exam: Present: RRR, +S1, +S2. Absent: diastolic murmur, gallop, rubs, systolic murmur - GI/Abdominal GI/Abdominal exam: Present: normal bowel sounds, soft, no peritoneal signs. Absent: distended, tenderness - Extremities Exam Extremities exam: Present: full ROM, warm, radial pulses palpable and symmetrical. Absent: calf tenderness, cyanotic, pedal edema - Neurological Exam Neurological exam: Present: CN II-XII intact, oriented X3, no focal deficits. Absent: pronater drift, facial droop, speech deficit Internal Medicine: Result - Labs CBC & Chem 7: 02/20/17 03:34 02/20/17 03:34 Consult Discharge Plan - Plan Additional Instructions: F/up with PCP today in Residency Clinic; F/up with Psychiatry and Neurology as scheduled Referrals: Branden Evans DO [Primary Care Provider] - 03/01/17 3:00 pm Prescriptions: Nystatin POWDER [Nystop] 1 appl TP BID #3 bottle
[2017-02-21] MEDS: Famotidine 20 MG TABLET PO SCH (21:56)
[2017-02-21] MEDS: Nystatin POWDER 30 GM BOTTLE TP SCH (21:56)
[2017-02-22] MEDS: Multivit/Ca/Min/Fe/FA 1 TAB TABLET PO SCH (09:32)
[2017-02-22] MEDS: Venlafaxine XR (24 HR) 150 MG CAP.ER.24H PO SCH (09:32)
[2017-02-22] MEDS: Cholecalciferol (D-3) 1,000 UNIT TABLET PO SCH (09:32)
[2017-02-22] MEDS: Nystatin POWDER 30 GM BOTTLE TP SCH (09:34)
[2017-02-22] MEDS: Divalproex (24 HR) 500 MG TABLET PO SCH (09:34)
[2017-02-22] MEDS: Gabapentin 100 MG CAPSULE PO SCH (09:34)
[2017-02-22] MEDS: Aspirin Enteric Coated 81 MG Tablet PO SCH (09:34)
[2017-02-22] MEDS: *HR* Heparin 5,000 UNIT/ML VIAL SQ SCH (09:35)
--- NOTE | 2017-02-22 10:02 | Discharge Summary ---
Date of Encounter: 02/22/17 Time of Encounter: 09:40 - Discharge Diagnosis (1) Hallucinations Priority: Primary Status: Acute (2) Seizure disorder Priority: Secondary Status: Chronic (3) Mood disorder Priority: Secondary Status: Chronic (4) GERD (gastroesophageal reflux disease) Priority: Secondary Status: Chronic Qualifiers: Esophagitis presence: esophagitis presence not specified Qualified Code(s) : K21.9 - Gastro-esophageal reflux disease without esophagitis - Discharge Medications Prescriptions: Nystatin POWDER [Nystop] 1 appl TP BID #3 bottle Home Medications: Aspirin Enteric Coated [Aspirin EC] 81 mg PO DAILY 02/18/17 [History] Buspirone HCl [Buspar] 30 mg PO BID 02/18/17 [History] Cholecalciferol (Vitamin D3) [Vitamin D3] 1,000 unit PO DAILY 02/18/17 [History] Divalproex (24 HR) [Depakote ER (24 HR)] 500 mg PO BID 02/18/17 [History] Gabapentin [Neurontin] 200 mg PO TID 02/18/17 [History] Multivit-Min/FA/Lycopen/Lutein [Adults 50+ Multivitamin Tablet] 1 tab PO DAILY 02/18/17 [History] Quetiapine Fumarate [Seroquel] 200 mg PO HS 02/18/17 [History] Ranitidine HCl [Heartburn Relief] 150 mg PO HS 02/18/17 [History] Sennosides/Docusate Sodium [Senna Plus] 2 tab PO HS PRN 02/18/17 [History] Simvastatin [Zocor] 40 mg PO HS 02/18/17 [History] Venlafaxine HCl [Venlafaxine HCl ER] 150 mg PO DAILY 02/18/17 [History] traZODone [TraZODone] 50 mg PO HS PRN 02/18/17 [History] Nystatin POWDER [Nystop] 1 appl TP BID #3 bottle 02/22/17 [Rx] Allergies/Adverse Reactions: 3 Allergy/AdvReac Type Severity Reaction Status Date / Time codeine Allergy Vomiting Verified 02/17/17 20:01 Date of admission: 02/18/17 01:08 Primary care physician: Branden Evans DO Consults: 02/18/17 05:20 Consult to Pole Lift Operator [CONS] Routine Reason for SW Consult: pls assist with placement in a snf for safety, thanks Concern for HH taking meds or pt not managing meds 02/18/17 10:53 Consult to Pastoral Services [CONS] Routine Comment: 02/20/17 09:45 Consult to Psychiatry [CONS] Routine Consulting Provider: Leandro Velazquez Reason for Consult: Hallucinations, medicaltion management Time Notified: 09:45 Call Completed: Yes Discharging clinician: Lexii Silva Anticipated date of discharge: 02/22/17 - Patient Status Disposition: Home Health Service Condition: Fair Functional capacity at discharge: independent ambulation Overall status at discharge: patient is progressing back to baseline - Discharge Instructions Follow Up With: Branden Evans DO [Primary Care Provider] - 03/01/17 3:00 pm Additional Instructions: F/up with PCP today in Residency Clinic; F/up with Psychiatry and Neurology as scheduled - Diet and Activity Activity: as per physical therapy Diet: advance to your usual diet, low fat, low cholesterol, low salt diet Hospital course: Ms. Sanchez is a 71 year old female with history of seizure and mood disorder, was initially admitted with altered mental status and visual hallucinations per her power of commercial litigation attorney. Initial labs, EKG, CT head showed no acute abnormality. Patient was recently started on tramadol for chronic back pain management and according to her power of commercial litigation attorney, this may have caused her altered mental status. Since this medication also could lower her seizure threshold, this has been held since admission. Review of outpatient medications with her pharmacy also revealed that patient may be duplicating her Depakote dose, which is supposed to be 500 mg twice daily. This has been resumed during this admission and serum Depakote level was noted to be within normal limits. Patient's hallucinations improved and she is currently at her baseline mental status. Psychiatric evaluation was completed with no new recommendations. I have attempted to reach patient's psychiatrist to go over her medication regimen, however this was unsuccessful and I have not received any call back yet. I have also discussed her case with her primary care provider in the residency clinic, Dr. Evans who offered to try to discuss her case with patient's primary neurologist and psychiatrist and adjust medications as needed. At this time, she is medically stable for discharge. natural sciences manager has been involved in discharge planning and after repeated questioning, patient continued to insist that she feels safe going home. Home health services have been arranged per her request, referral completed. Patient requires 24-hour care and help with medication management to avoid duplication and ensure compliance. - Time Spent with Patient Total time spent providing and/or coordinating discharge services: Greater than 30 minutes (40 min) - Constitutional Vitals: Temp Pulse Resp BP Pulse Ox 98.3 F 74 16 131/77 95 02/22/17 07:52 02/22/17 07:52 02/22/17 07:52 02/22/17 07:52 02/22/17 07:52 General appearance: Present: A&O X 3, answers questions appropriately - Respiratory Respiratory exam: Present: CTAB. Absent: accessory muscle use, rales, rhonchi, wheezes - Cardiovascular Cardiovascular exam: Present: RRR, +S1, +S2. Absent: diastolic murmur, gallop, rubs, systolic murmur
--- NOTE | 2017-02-22 11:18 | Physician Discharge Referral ---
Home Health/Hosp Referral Info Transfer to: Home Health Attending Provider: Lexii Silva Provider in Charge Post Discharge: PCP - Diagnosis (1) Hallucinations Priority: Primary Status: Resolved (2) Seizure disorder Priority: Secondary Status: Chronic (3) Mood disorder Priority: Secondary Status: Chronic (4) GERD (gastroesophageal reflux disease) Priority: Secondary Status: Chronic - Respiratory Orders Smoking Cessation: Smoking cessation has been advised. For more information, call the [place] Tobacco Quit Line at 6-989-GFGQ-NOW. - Diet/Nutrition Diet/Nutrition Orders: No Added Salt (EMIL), Cardiac - Activity Activity Orders: Ambulate, Walker - Services Needed Following services are medically necessary services: Nursing, Home Health Aide, Physical Therapy, Occupational Therapy - Transfer Medications Prescriptions: Nystatin POWDER [Nystop] 1 appl TP BID #3 bottle Home Medications: Aspirin Enteric Coated [Aspirin EC] 81 mg PO DAILY 02/18/17 [History] Buspirone HCl [Buspar] 30 mg PO BID 02/18/17 [History] Cholecalciferol (Vitamin D3) [Vitamin D3] 1,000 unit PO DAILY 02/18/17 [History] Divalproex (24 HR) [Depakote ER (24 HR)] 500 mg PO BID 02/18/17 [History] Gabapentin [Neurontin] 200 mg PO TID 02/18/17 [History] Multivit-Min/FA/Lycopen/Lutein [Adults 50+ Multivitamin Tablet] 1 tab PO DAILY 02/18/17 [History] Quetiapine Fumarate [Seroquel] 200 mg PO HS 02/18/17 [History] Ranitidine HCl [Heartburn Relief] 150 mg PO HS 02/18/17 [History] Sennosides/Docusate Sodium [Senna Plus] 2 tab PO HS PRN 02/18/17 [History] Simvastatin [Zocor] 40 mg PO HS 02/18/17 [History] Venlafaxine HCl [Venlafaxine HCl ER] 150 mg PO DAILY 02/18/17 [History] traZODone [TraZODone] 50 mg PO HS PRN 02/18/17 [History] Nystatin POWDER [Nystop] 1 appl TP BID #3 bottle 02/22/17 [Rx] Allergies/Adverse Reactions: 3 Allergy/AdvReac Type Severity Reaction Status Date / Time codeine Allergy Vomiting Verified 02/17/17 20:01 Certification: Further, I certify that my clinical findings support that this patient is homebound (i.e. absences from home require considerable and taxing effort and are for medical reasons or episcop[employer] services or infrequently or short duration when for other reasons) because: Homebound Reason: Patient requires assistance of a person or device to safely leave home, Altered mental status requiring supervision when leaving home Attestation: My signature below is to certify that this patient is under my care and that I, or nurse practitioner, or a physician's assistant professor of nursing working with me, has a face-to -face encounter with this patient.
[2017-02-22 11:45] VITALS: BP 132/65
[2017-02-22 19:18] LABS: Valproate Free 15 ug/mL (7-23); Valproate Total 80 ug/mL (50-125)
[2017-02-23 07:54] LABS: Valproate % Free 19 % (5-18)
== END 2017-02-22 13:05 | disposition home health service (06) ==
LOC: 2NENU 19:49 → EMEROO 19:49 → SUATTDRO 02-18 01:08 → 2NENU 02-18 01:23
PROVIDERS: ADMIT Hospitalist; ATTEND Internal Medicine

== ENCOUNTER 2020-07-07 12:44 | Observation (INO) ==
[2020-07-07 13:49] LABS: Basophils % 0.5 %; Eosinophils % 0.5 %; Hematocrit 48.1 % (35.3-44.9); Hemoglobin 16.3 g/dL (11.5-15.4); Immature Granulocytes % 0.4 % (0-4); Lymphocytes # 2.3 K/mcL (0.6-4.6); Lymphocytes % 26.8 %; Mean Corpuscular HGB Conc 33.9 g/dL (31.6-35.5); Mean Corpuscular Hemoglobin 34.3 pg (28.0-33.3); Mean Corpuscular Volume 101.3 fL (83.0-100.0); Mean Platelet Volume 9.1 fL (9.4-12.4); Monocytes # 1.2 K/mcL (0.0-1.3); Monocytes % 13.8 %; Platelet Count 308 K/mcL (140-400); Red Blood Count 4.75 M/mcL (3.82-4.97); Red Cell Distribution Width 13.3 % (11.5-14.5); White Blood Count 8.6 K/mcL (4.3-11.1)
[2020-07-07 14:06] LABS: Estimated Average Glucose 114 mg/dl; Hemoglobin A1C 5.6 %
[2020-07-07 14:20] LABS: Acetaminophen < 10 mcg/mL (10-20); BUN/Creatinine Ratio 13 (6-26); Blood Urea Nitrogen 9 mg/dL (8-23); Calcium 10.4 mg/dL (8.6-10.3); Carbon Dioxide 21 mEq/L (23-29); Chloride 102 mEq/L (98-107); Chol/HDL Ratio 4.3 (0-4.9); Cholesterol 237 mg/dL (< 200); Ethanol < 10 mg/dL (Less than 10); Glucose 134 mg/dL (70-105); HDL Cholesterol 55 mg/dL (40-59); LDL Cholesterol,Calculated 152 mg/dL (< 100); Osmolality,Calculated 285 (280-300); Potassium 3.5 mEq/L (3.5-5.1); Salicylate < 2.5 mg/dL (15.0-30.0); Sodium 137 mEq/L (136-145); Triglycerides 151 mg/dL (< 150); eGFR For African Americans > 60 (> 60); eGFR For Non-African Americans > 60 (> 60)
[2020-07-07 14:22] LABS: Thyroid Stimulating Hormone 0.802 mcIU/mL (0.340-5.600)
[2020-07-07 14:43] LABS: Albumin 4.9 g/dL (3.5-5.7); Albumin/Globulin Ratio 1.8 (1.1-2.2); Bilirubin,Direct 0.2 mg/dL (0.0-0.2); Bilirubin,Indirect 1.1 mg/dL (0.0-1.0); Bilirubin,Total 1.3 mg/dL (0.3-1.0); Globulin 2.8 g/dL (2.4-3.5); Total Protein 7.7 g/dL (6.4-8.9)
[2020-07-07 14:47] LABS: Amphetamine Screen,Urine Negative ng/mL (Cutoff=1000); Barbiturate Screen,Urine Negative ng/mL (Cutoff=200); Benzodiazepines Screen,Urine Negative ng/mL (Cutoff=200); Cannabinoid Screen,Urine Negative ng/mL (Cutoff = 50); Cocaine Screen,Urine Negative ng/mL (Cutoff= 300); Opiate Screen,Urine Negative ng/mL (Cutoff=300); Phencyclidine Screen,Urine Negative ng/mL (Cutoff=25)
[2020-07-07 14:53] LABS: Bacteria,Urine Few per hpf (None-Few); Bilirubin,Urine Negative (Negative); Blood,Urine Negative (Negative); Clarity,Urine Turbid (Clear); Color,Urine Yellow (Yellow); Glucose,Urine (UA) Normal (Normal); Granular Casts,Urine Few per lpf (None Seen); Hyaline Casts,Urine Many per lpf (None Seen); Ketones,Urine Negative (Negative); Leukocyte Esterase,Urine Large (Negative); Mucus,Urine Moderate per lpf (None-Few); Nitrite,Urine Negative (Negative); PH,Urine 6.5 pH Units (5.0-8.0); Protein,Urine 100 mg/dL (Neg-Trace); RBC,Urine 15-30 per hpf (0-3); Renal Epithelial Cells,Urine Few per hpf (None-Few); Squamous Epithelial Cell,Urine Many per hpf (None-Few); Transitional Epi Cells,Urine Moderate per hpf (None-Few); Urobilinogen,Urine Normal (Normal); WBC,Urine 50-100 per hpf (0-3)
[2020-07-07] MEDS ORDERED: Piperacillin/Tazobactam 3.375 GM in Water for inj. (sterile) 20 ML IVP ONE (15:06)
[2020-07-07] MEDS ORDERED: Naloxone 0.4 MG/ML INJ IVP PRN (17:00)
[2020-07-07] MEDS ORDERED: Ondansetron 4 MG/2 ML VIAL IVP PRN (17:00)
[2020-07-07] MEDS: 0.9 % Sodium Chloride 1,000 ML IVC SCH ×2 (17:35→20:04)
[2020-07-07] MEDS: Cefepime HCl 2,000 MG in Water for inj. (sterile) 20 ML IVP SCH (18:53)
[2020-07-07] MEDS: Divalproex (24 HR) 500 MG TABLET PO SCH (20:05)
[2020-07-08 05:12] LABS: Basophils % 0.9 %; Eosinophils # 0.1 K/mcL (0.0-0.6); Eosinophils % 2.6 %; Hematocrit 37.8 % (35.3-44.9); Immature Granulocytes % 0.2 % (0-4); Lymphocytes # 2.1 K/mcL (0.6-4.6); Mean Corpuscular HGB Conc 33.3 g/dL (31.6-35.5); Mean Corpuscular Hemoglobin 33.6 pg (28.0-33.3); Mean Corpuscular Volume 100.8 fL (83.0-100.0); Mean Platelet Volume 9.4 fL (9.4-12.4); Monocytes # 0.6 K/mcL (0.0-1.3); Monocytes % 12.4 %; Neutrophils # 1.9 K/mcL (1.6-8.9); Platelet Count 225 K/mcL (140-400); Red Blood Count 3.75 M/mcL (3.82-4.97); Red Cell Distribution Width 13.3 % (11.5-14.5); Segmented Neutrophils % 39.9 %; White Blood Count 4.7 K/mcL (4.3-11.1)
[2020-07-08 05:18] LABS: Hemoglobin 12.6 g/dL (11.5-15.4)
[2020-07-08 05:25] LABS: BUN/Creatinine Ratio 13 (6-26); Blood Urea Nitrogen 7 mg/dL (8-23); Calcium 8.5 mg/dL (8.6-10.3); Carbon Dioxide 21 mEq/L (23-29); Chloride 105 mEq/L (98-107); Glucose 102 mg/dL (70-105); Magnesium 1.6 mg/dL (1.6-2.6); Osmolality,Calculated 280 (280-300); Phosphorous 3.3 mg/dL (2.7-4.5); Potassium 3.6 mEq/L (3.5-5.1); Sodium 136 mEq/L (136-145); eGFR For African Americans > 60 (> 60); eGFR For Non-African Americans > 60 (> 60)
[2020-07-08] MEDS: Cefepime HCl 2,000 MG in Water for inj. (sterile) 20 ML IVP SCH ×2 (05:52→17:39)
[2020-07-08] MEDS: 0.9 % Sodium Chloride 1,000 ML IVC SCH (05:52)
[2020-07-08] MEDS: Divalproex (24 HR) 500 MG TABLET PO SCH ×2 (10:33→20:54)
[2020-07-08] MEDS ORDERED: Sennosides 8.6 MG TABLET PO PRN (14:03)
[2020-07-08] MEDS ORDERED: Nystatin POWDER 30 GM BOTTLE TP PRN (14:03)
[2020-07-08] MEDS: Budesonide/Formoterol 160/4.5 1 PUFF INH IH SCH (20:31)
[2020-07-08] MEDS: Gabapentin 100 MG CAPSULE PO SCH (20:55)
[2020-07-08] MEDS ORDERED: QUEtiapine Fumarate 100 MG TABLET PO SCH (21:00)
[2020-07-08] MEDS ORDERED: risperiDONE 0.25 MG TABLET PO SCH (21:00)
[2020-07-09] MEDS: 0.9 % Sodium Chloride 1,000 ML IVC SCH (05:40)
[2020-07-09] MEDS ORDERED: *HR* Enoxaparin 40 MG/0.4 ML SYRINGE SQ SCH (06:00)
[2020-07-09] MEDS: Cefepime HCl 2,000 MG in Water for inj. (sterile) 20 ML IVP SCH (06:51)
[2020-07-09] MEDS: Budesonide/Formoterol 160/4.5 1 PUFF INH IH SCH (07:45)
[2020-07-09 08:53] VITALS: BP 152/81
[2020-07-09] MEDS ORDERED: Venlafaxine XR (24 HR) 150 MG CAP.ER.24H PO SCH (09:00)
[2020-07-09] MEDS ORDERED: Cholecalciferol (D-3) 1,000 UNIT (25MCG) TABLET PO SCH (09:00)
[2020-07-09] MEDS: Gabapentin 100 MG CAPSULE PO SCH (10:35)
[2020-07-09] MEDS: Divalproex (24 HR) 500 MG TABLET PO SCH (10:35)
[2020-07-09] MEDS ORDERED: cephALEXin 500 MG CAPSULE PO SCH (13:00)
== END 2020-07-09 16:45 | disposition home health service (06) ==
LOC: 3ANU 12:44 → EMEROOARM 12:44 → SUATTDRO 17:23 → 3ANU 17:40
PROVIDERS: ADMIT Family Medicine; ATTEND Internal Medicine

== ENCOUNTER 2020-10-25 10:39 | Observation (INO) ==
[2020-10-25] MEDS ORDERED: *HR* LORazepam 2 MG/ML VIAL IVP ONE (11:22)
[2020-10-25] MEDS ORDERED: 0.9 % Sodium Chloride 1,000 ML IV ONE (11:22)
[2020-10-25 13:10] LABS: Bilirubin,Urine Negative (Negative); Blood,Urine Negative (Negative); Clarity,Urine Clear (Clear); Color,Urine Light-Yellow (Yellow); Glucose,Urine (UA) Normal (Normal); Ketones,Urine Negative (Negative); Leukocyte Esterase,Urine Negative (Negative); Nitrite,Urine Negative (Negative); PH,Urine 7.5 pH Units (5.0-8.0); Protein,Urine Negative (Neg-Trace); Urobilinogen,Urine Normal (Normal)
[2020-10-25 13:19] LABS: Basophils % 0.4 %; Eosinophils # 0.1 K/mcL (0.0-0.6); Eosinophils % 2.2 %; Hematocrit 40.9 % (35.3-44.9); Hemoglobin 13.1 g/dL (11.5-15.4); Immature Granulocytes % 0.2 % (0-4); Lymphocytes # 1.5 K/mcL (0.6-4.6); Lymphocytes % 28.5 %; Mean Corpuscular Volume 106.2 fL (83.0-100.0); Mean Platelet Volume 9.4 fL (9.4-12.4); Monocytes # 0.5 K/mcL (0.0-1.3); Monocytes % 9.7 %; Neutrophils # 3.2 K/mcL (1.6-8.9); Platelet Count 173 K/mcL (140-400); Red Blood Count 3.85 M/mcL (3.82-4.97); Red Cell Distribution Width 12.6 % (11.5-14.5); White Blood Count 5.3 K/mcL (4.3-11.1)
[2020-10-25 13:26] LABS: Prothrombin Time 11.9 Seconds (9.4-12.1)
[2020-10-25 13:29] LABS: Activated Partial Thrombo Time 27.5 Seconds (26.0-36.0)
[2020-10-25 13:43] LABS: Alanine Aminotransferase 12 Units/L (7-52); Albumin 3.8 g/dL (3.5-5.7); Albumin/Globulin Ratio 1.7 (1.1-2.2); Alkaline Phosphatase 44 Units/L (34-104); Aspartate Amino Transferase 23 Units/L (13-39); BUN/Creatinine Ratio 14 (6-26); Bilirubin,Total 0.5 mg/dL (0.3-1.0); Blood Urea Nitrogen 8 mg/dL (8-23); Calcium 8.7 mg/dL (8.6-10.3); Carbon Dioxide 28 mEq/L (23-29); Chloride 106 mEq/L (98-107); Creatine Kinase 66 Units/L (30-223); Globulin 2.3 g/dL (2.4-3.5); Glucose 80 mg/dL (70-105); Lipase 16 Units/L (11-82); Magnesium 1.8 mg/dL (1.6-2.6); Osmolality,Calculated 291 (280-300); Potassium 4.2 mEq/L (3.5-5.1); Sodium 142 mEq/L (136-145); Total Protein 6.1 g/dL (6.4-8.9); Troponin I 0.05 ng/mL (< 0.04); eGFR For African Americans > 60 (> 60); eGFR For Non-African Americans > 60 (> 60)
[2020-10-25 13:58] LABS: Thyroid Stimulating Hormone 0.633 mcIU/mL (0.340-5.600)
[2020-10-25] MEDS ORDERED: Aspirin 81 MG TAB.CHEW PO STA (13:58)
[2020-10-25] MEDS ORDERED: Ondansetron 4 MG/2 ML VIAL IVP PRN (15:22)
[2020-10-25] MEDS ORDERED: Acetaminophen 325 MG TABLET PO PRN (15:22)
[2020-10-25] MEDS ORDERED: Naloxone 0.4 MG/ML INJ IVP PRN (15:22)
[2020-10-25] MEDS ORDERED: Perflutren Lipid Microsphere 1.3 ML in 0.9 % Sodium Chloride 8.7 ML IVP PRN (15:28)
[2020-10-25] MEDS ORDERED: Ipratropium/Albuterol Neb 3 ML IH PRN (15:29)
[2020-10-25] MEDS: Ipratropium/Albuterol Neb 3 ML IH SCH (16:12)
[2020-10-25] MEDS: Divalproex (12 HR) 500 MG TABLET PO SCH (20:22)
[2020-10-25] MEDS: Gabapentin 300 MG CAPSULE PO SCH (20:22)
[2020-10-25] MEDS ORDERED: QUEtiapine Fumarate 100 MG TABLET PO SCH (21:00)
[2020-10-25] MEDS: Budesonide/Formoterol 160/4.5 1 PUFF INH IH SCH (21:09)
[2020-10-26] MEDS: Ipratropium/Albuterol Neb 3 ML IH SCH (04:36)
[2020-10-26 05:45] LABS: Basophils % 0.8 %; Eosinophils # 0.1 K/mcL (0.0-0.6); Eosinophils % 2.8 %; Hematocrit 40.8 % (35.3-44.9); Hemoglobin 13.1 g/dL (11.5-15.4); Immature Granulocytes % 0.2 % (0-4); Lymphocytes # 2.4 K/mcL (0.6-4.6); Mean Corpuscular HGB Conc 32.1 g/dL (31.6-35.5); Mean Corpuscular Hemoglobin 33.6 pg (28.0-33.3); Mean Corpuscular Volume 104.6 fL (83.0-100.0); Mean Platelet Volume 9.7 fL (9.4-12.4); Monocytes # 0.5 K/mcL (0.0-1.3); Monocytes % 9.8 %; Platelet Count 183 K/mcL (140-400); Red Cell Distribution Width 12.6 % (11.5-14.5); Segmented Neutrophils % 39.4 %; White Blood Count 5.1 K/mcL (4.3-11.1)
[2020-10-26] MEDS ORDERED: *HR* Enoxaparin 40 MG/0.4 ML SYRINGE SQ SCH (06:00)
[2020-10-26 06:07] LABS: BUN/Creatinine Ratio 18 (6-26); Blood Urea Nitrogen 11 mg/dL (8-23); Calcium 9.1 mg/dL (8.6-10.3); Carbon Dioxide 25 mEq/L (23-29); Chloride 104 mEq/L (98-107); Glucose 88 mg/dL (70-105); Osmolality,Calculated 289 (280-300); Potassium 4.4 mEq/L (3.5-5.1); Sodium 140 mEq/L (136-145); Troponin I 0.04 ng/mL (< 0.04); eGFR For African Americans > 60 (> 60); eGFR For Non-African Americans > 60 (> 60)
[2020-10-26 06:16] LABS: Platelet Estimate Normal (Normal); Reactive Lymphocytes Present (Not Present)
[2020-10-26] MEDS: Divalproex (12 HR) 500 MG TABLET PO SCH (08:42)
[2020-10-26] MEDS: Gabapentin 300 MG CAPSULE PO SCH (08:43)
[2020-10-26] MEDS ORDERED: Aspirin 81 MG TAB.CHEW PO SCH (09:00)
[2020-10-26] MEDS: Budesonide/Formoterol 160/4.5 1 PUFF INH IH SCH (09:38)
[2020-10-26] MEDS ORDERED: Ipratropium/Albuterol Neb 3 ML IH SCH (10:00)
[2020-10-26 10:28] VITALS: BP 98/63
[2020-10-26 10:46] LABS: Chol/HDL Ratio 2.8 (0-4.9)
[2020-10-26] MEDS ORDERED: Regadenoson 0.4 MG/5 ML SYRINGE IVP ONE (11:25)
[2020-10-27 12:55] LABS: Estimated Average Glucose 114 mg/dl; Hemoglobin A1C 5.6 %
== END 2020-10-26 18:36 | disposition home health service (06) ==
LOC: 3BNU 10:39 → EMEROOARM 10:39 → 3BNU 15:25
PROVIDERS: ADMIT Internal Medicine; ATTEND Internal Medicine